=== PATIENT | female | born 1990 | race Caucasian/White ===

== ENCOUNTER 2022-11-20 16:54 | Emergency (ER) | payer MEDICAID, SELFPAY ==
[2022-11-20 17:00] VITALS: BP 133/86; PULSE 81; RESP 18; TEMP 36.7; O2SAT 98
--- NOTE | 2022-11-20 17:06 | W.ED.GENAD ---
Discharge Plan Disposition Patient Disposition: Home Discharge Details Clinical Impression: Conjunctivitis Primary Care Provider: Lynda Light ED Provider: Kayy Carreon Home Meds and New Rx's Prescriptions: Continued folic acid 400 MCG tablet 400 mcg Patient Comments: not taking ferrous sulfate [Feosol] 325 MG tablet 325 mg PO DAILY Patient Comments: not taking pyridoxine (vitamin B6) [Vitamin B-6] 100 MG tablet 100 mg PO Patient Comments: not taking sertraline 50 MG tablet 50 mg PO DAILY Patient Comments: not taking PNV cmb#95-ferrous fumarate-FA [] 1 EACH tablet 1 ea PO DAILY Patient Comments: not taking Discharge Instructions Instructions: Polymyxin B/Trimethoprim (Into the eye), Conjunctivitis (ED) Additional Instructions: Use the eyedrops as directed 3 times a day while awake for the next 7 to 10 days. Follow up with primary care provider in 3-5 days. Return to ED sooner if any worsening or concerns. Increase oral fluids. May follow-up with ophthalmology if no improvement after 3 days of the eyedrops. Do not wear the contact lens until finishing the antibiotics. Referrals: [facility] [Outside] - Return if symptoms worsen Lynda Light MD [Primary Care Provider] - 5 days Discharge Data Discharge Date/Time-TO BE ENTERED AT DEPARTURE: 11/20/22 17:13 Medical Decision Making 32-year-old female presents to the ER with a chief complaint of left eye itching and drainage which she noticed today. She reports that after putting her contact lens and this morning symptoms began. Polytrim optic drops ordered 3 times a day for the next 7 to 10 days. Findings consistent with early conjunctivitis. This text was generated using [employer] system, please disregard any oddities of phrase or misspellings. HPI General Mode of arrival: ambulatory. Date/Time Provider Initiated Documentation: 11/20/22 16:59. Limitations to Documentation: no limitations. Information obtained by: patient, RN notes reviewed and old records reviewed. HPI Narrative: 32-year-old female presents to the ER with a chief complaint of left eye itching and drainage which she noticed today. She reports that after putting her contact lens and this morning symptoms began. She also reports purulent discharge. She does have false eyelashes noted she did take the contact lenses out. She does have partial injection of the conjunctive a to the left. Related Data Home Medications Medication Instructions Recorded Confirmed ferrous sulfate 325 mg (65 mg 325 mg PO DAILY 02/24/18 02/25/18 iron) tablet (Feosol) folic acid 400 mcg tablet 400 mcg 02/24/18 vit no.95-ferrous 1 ea PO DAILY 02/24/18 fumarate 28 mg-folic acid 800 mcg tablet () pyridoxine (vitamin B6) 100 mg 100 mg PO 02/24/18 tablet (Vitamin B-6) sertraline 50 mg tablet 50 mg PO DAILY 02/24/18 02/25/18 Allergies Allergy/AdvReac Type Severity Reaction Status Date / Time No Known Allergies Allergy Unverified 11/20/22 17:02 General Stated Complaint: EyeProblem DIANN: 4 Review of Systems All systems reviewed & are unremarkable except as noted in HPI and below Eyes Eyes: Reports as per HPI, Reports eye discharge, Reports irritation and Reports itchy eyes Allergic/Immunologic Allergic/Immunologic: Reports itchy eyes PFSH All Active Problems (Updated 11/20/22 @ 17:10 by Kayy Carreon NP) Conjunctivitis (Acute) Social History Smoking/Tobacco Use Status: Never Smoking risk assessment performed?: Yes Alcohol Intake: never Drug use: Never Substance use type: does not use Do you feel safe at home: Yes Do you feel safe in your relationship?: Yes Exam Const General: cooperative, healthy appearing, comfortable, well developed and well groomed Nutritional Appearance: average body habitus and well nourished Orientation: awake and oriented x3 Eyes General: appearance normal, both eyes and all related structures Alignment and Position: alignment normal Periorbital: periorbital findings normal Eyelids: eyelids normal Conjunctivae: conjunctival abnormality left conjunctival injection localized Pupils: PERRL EOM: EOM intact bilaterally Direct ophthalmoscopy: normal light reflex Eyes/upper lids images: 1. Conjunctival injection Course Vital Signs Vital signs: Vital Signs Temperature 36.7 C 11/20/22 17:00 Pulse 81 11/20/22 17:00 Respiratory Rate 18 11/20/22 17:00 Blood Pressure 133/86 11/20/22 17:00 Pulse Oximetry 98 11/20/22 17:00 Temperature 36.7 C 11/20/22 17:00 Temperature Source Temporal Artery Scan 04/26/23 17:00 Pulse 81 11/20/22 17:00 Respiratory Rate 18 11/20/22 17:00 Respiratory Effort Normal, Non-Labored 11/20/22 17:02 Blood Pressure 133/86 11/20/22 17:00 Pulse Oximetry 98 11/20/22 17:00 Oxygen Delivery Method Room Air 11/20/22 17:00 Oxygen Flow Rate 0 11/20/22 17:00
[2022-11-20] MEDS: Polymyxin B/Trimethoprim Ophth Soln 10 ML BTL OS (17:12)
== END 2022-11-20 17:13 | disposition home or self-care (01) ==
PROVIDERS: Emergency Provider Registered Nurse Emergency; PCP Family Medicine
DX: H10.9 Unspecified conjunctivitis (principal)
CPT/HCPCS: 99283